=== PATIENT | female | born 1990 | race Caucasian/White ===

== ENCOUNTER 2019-11-17 02:01 | Inpatient (IN) ==
[2019-11-17] MEDS ORDERED: 0.9 % Sodium Chloride 1,000 ML IVC ONE (02:32)
[2019-11-17] MEDS ORDERED: Ondansetron 4 MG/2 ML VIAL IVP ONE (02:32)
[2019-11-17] MEDS ORDERED: Ketorolac 15 MG/ML VIAL IVP ONE (02:41)
[2019-11-17 03:08] LABS: Basophils # 0.1 K/mcL (0.0-0.2); Basophils % 0.4 %; Bilirubin,Urine Small (Negative); Blood,Urine Negative (Negative); Clarity,Urine Cloudy (Clear); Color,Urine Yellow (Yellow); Eosinophils % 0.2 %; Glucose,Urine (UA) Normal (Normal); Hemoglobin 15.6 g/dL (11.5-15.4); Immature Granulocytes % 0.4 % (0-4); Ketones,Urine 40 mg/dL (Negative); Leukocyte Esterase,Urine Negative (Negative); Lymphocytes # 0.9 K/mcL (0.6-4.6); Lymphocytes % 6.2 %; Mean Corpuscular HGB Conc 34.7 g/dL (31.6-35.5); Mean Corpuscular Hemoglobin 29.9 pg (28.0-33.3); Mean Corpuscular Volume 86.2 fL (83.0-100.0); Mean Platelet Volume 10.4 fL (9.4-12.4); Monocytes # 0.9 K/mcL (0.0-1.3); Monocytes % 6.7 %; Neutrophils # 11.7 K/mcL (1.6-8.9); Nitrite,Urine Negative (Negative); PH,Urine 5.5 pH Units (5.0-8.0); Platelet Count 265 K/mcL (140-400); Protein,Urine 100 mg/dL (Neg-Trace); Red Blood Count 5.22 M/mcL (3.82-4.97); Red Cell Distribution Width 13.5 % (11.5-14.5); Segmented Neutrophils % 86.1 %; Urobilinogen,Urine Normal (Normal); White Blood Count 13.6 K/mcL (4.3-11.1)
[2019-11-17 03:09] LABS: Bacteria,Urine Few per hpf (None-Few); Hyaline Casts,Urine Few per lpf (None-Few); Squamous Epithelial Cell,Urine Many per lpf (None-Few)
[2019-11-17] MEDS ORDERED: Isovue-370 500 ML BOTTLE IVP ONE (03:23)
[2019-11-17 03:30] LABS: Alanine Aminotransferase 43 Units/L (7-52); Albumin 4.7 g/dL (3.5-5.7); Albumin/Globulin Ratio 1.4 (1.1-2.2); Alkaline Phosphatase 66 Units/L (34-104); Amylase 17 Units/L (29-103); Aspartate Amino Transferase 22 Units/L (13-39); BUN/Creatinine Ratio 15 (6-26); Bilirubin,Direct 0.1 mg/dL (0.0-0.2); Bilirubin,Indirect 0.5 mg/dL (0.0-1.0); Bilirubin,Total 0.6 mg/dL (0.3-1.0); Blood Urea Nitrogen 13 mg/dL (6-20); Calcium 9.6 mg/dL (8.6-10.3); Carbon Dioxide 19 mEq/L (23-29); Chloride 108 mEq/L (98-107); Globulin 3.3 g/dL (2.4-3.5); Glucose 103 mg/dL (70-105); Lipase 7 Units/L (11-82); Osmolality,Calculated 292 (280-300); Potassium 3.5 mEq/L (3.5-5.1); Sodium 141 mEq/L (136-145); Troponin I < 0.03 ng/mL (< 0.04); eGFR For African Americans > 60 (> 60); eGFR For Non-African Americans > 60 (> 60)
[2019-11-17] MEDS ORDERED: cefTRIAXone 1,000 MG in Water for inj. (sterile) 10 ML IVP ONE (04:45)
[2019-11-17] MEDS ORDERED: Azithromycin 500 MG in 0.9 % Sodium Chloride 250 ML IVPB ONE (04:46)
[2019-11-17] MEDS ORDERED: Promethazine 25 MG in 0.9 % Sodium Chloride 50 ML IVPB ONE (05:52)
[2019-11-17] MEDS ORDERED: Ondansetron 4 MG/2 ML VIAL IVP PRN (07:26)
[2019-11-17] MEDS ORDERED: *HR* HYDROcodone/Acet 5/325 mg TABLET PO PRN (07:26)
[2019-11-17] MEDS ORDERED: Naloxone 0.4 MG/ML INJ IVP PRN (07:26)
[2019-11-17] MEDS ORDERED: 0.9 % Sodium Chloride 1,000 ML IVC SCH (07:45)
[2019-11-17] MEDS ORDERED: NON-FORMULARY MEDICATION 1 EACH EACH (Omeprazole [Prilosec] 40 MG) PO SCH (09:00)
[2019-11-17] MEDS ORDERED: PARoxetine 20 MG TABLET PO SCH (09:00)
[2019-11-17] MEDS: Pantoprazole 40 MG VIAL IVP SCH (09:19)
[2019-11-17] MEDS: Ondansetron 4 MG/2 ML VIAL IVP PRN ×2 (17:29→23:20)
[2019-11-18] MEDS ORDERED: CefTRIAXone 1,000 MG VIAL ONE (07:46)
[2019-11-18] MEDS: Pantoprazole 40 MG VIAL IVP SCH (07:52)
[2019-11-18 08:35] LABS: Basophils # 0.1 K/mcL (0.0-0.2); Basophils % 0.9 %; Eosinophils # 0.6 K/mcL (0.0-0.6); Eosinophils % 7.6 %; Hematocrit 46.9 % (35.3-44.9); Hemoglobin 15.4 g/dL (11.5-15.4); Immature Granulocytes % 0.3 % (0-4); Lymphocytes # 1.7 K/mcL (0.6-4.6); Lymphocytes % 22.4 %; Mean Corpuscular HGB Conc 32.8 g/dL (31.6-35.5); Mean Corpuscular Hemoglobin 29.3 pg (28.0-33.3); Mean Corpuscular Volume 89.3 fL (83.0-100.0); Mean Platelet Volume 10.6 fL (9.4-12.4); Monocytes # 0.7 K/mcL (0.0-1.3); Monocytes % 8.6 %; Neutrophils # 4.6 K/mcL (1.6-8.9); Platelet Count 203 K/mcL (140-400); Red Blood Count 5.25 M/mcL (3.82-4.97); Red Cell Distribution Width 13.4 % (11.5-14.5); Segmented Neutrophils % 60.2 %; White Blood Count 7.7 K/mcL (4.3-11.1)
[2019-11-18] MEDS: Ondansetron 4 MG/2 ML VIAL IVP PRN ×3 (08:37→19:53)
[2019-11-18 08:53] LABS: BUN/Creatinine Ratio 15 (6-26); Blood Urea Nitrogen 10 mg/dL (6-20); Carbon Dioxide 20 mEq/L (23-29); Chloride 109 mEq/L (98-107); Glucose 72 mg/dL (70-105); Magnesium 2.1 mg/dL (1.6-2.6); Osmolality,Calculated 286 (280-300); Phosphorous 3.2 mg/dL (2.7-4.5); Potassium 3.3 mEq/L (3.5-5.1); Sodium 139 mEq/L (136-145); eGFR For African Americans > 60 (> 60); eGFR For Non-African Americans > 60 (> 60)
[2019-11-18] MEDS ORDERED: cefTRIAXone 1,000 MG in Water for inj. (sterile) 10 ML IVP SCH (09:00)
[2019-11-18] MEDS ORDERED: Azithromycin 500 MG in 0.9 % Sodium Chloride 250 ML IVPB SCH (09:00)
[2019-11-18] MEDS ORDERED: *HR* Promethazine 25 MG/ML VIAL IM ONE (10:05)
[2019-11-18] MEDS ORDERED: Isovue-370 500 ML BOTTLE IVP ONE (11:23)
[2019-11-18] MEDS: 0.9 % Sodium Chloride 1,000 ML IVC SCH ×2 (12:19→23:34)
[2019-11-18] MEDS ORDERED: *HR* Promethazine 25 MG/ML VIAL IVP PRN (12:41)
[2019-11-18] MEDS: Promethazine 25 MG in 0.9 % Sodium Chloride 50 ML IVPB PRN (14:50)
[2019-11-19] MEDS: Promethazine 25 MG in 0.9 % Sodium Chloride 50 ML IVPB PRN ×2 (00:17→09:51)
[2019-11-19 07:51] LABS: Hematocrit 41.1 % (35.3-44.9); Hemoglobin 13.9 g/dL (11.5-15.4); Mean Corpuscular HGB Conc 33.8 g/dL (31.6-35.5); Mean Corpuscular Hemoglobin 29.5 pg (28.0-33.3); Mean Corpuscular Volume 87.3 fL (83.0-100.0); Mean Platelet Volume 10.7 fL (9.4-12.4); Platelet Count 212 K/mcL (140-400); Red Blood Count 4.71 M/mcL (3.82-4.97); Red Cell Distribution Width 13.3 % (11.5-14.5); White Blood Count 8.9 K/mcL (4.3-11.1)
[2019-11-19 07:58] LABS: BUN/Creatinine Ratio 14 (6-26); Blood Urea Nitrogen 8 mg/dL (6-20); Calcium 8.2 mg/dL (8.6-10.3); Carbon Dioxide 15 mEq/L (23-29); Chloride 119 mEq/L (98-107); Glucose 67 mg/dL (70-105); Osmolality,Calculated 277 (280-300); Potassium 3.7 mEq/L (3.5-5.1); Sodium 135 mEq/L (136-145); eGFR For African Americans > 60 (> 60); eGFR For Non-African Americans > 60 (> 60)
[2019-11-19] MEDS: Pantoprazole 40 MG VIAL IVP SCH (08:22)
[2019-11-19] MEDS: Ondansetron 4 MG/2 ML VIAL IVP PRN ×2 (08:22→16:20)
[2019-11-19 11:45] LABS: Adenovirus F 40/41 PCR Not detected (Not detect); Astrovirus PCR Not detected (Not detect); C.difficile Toxin A/B Gene PCR Not detected (Not detect); Campylobacter by PCR Not detected (Not detect); Cryptosporidium by PCR Not detected (Not detect); Cyclospora cayetanensis PCR Not detected (Not detect); E. coli O157 by PCR Not detected (Not detect); Entamoeba histolytica PCR Not detected (Not detect); Enteroaggregative E.coli(EAEC) Not detected (Not detect); Enteropathogenic E.coli(EPEC) Not detected (Not detect); Enterotoxigenic E.coli (ETEC) Not detected (Not detect); Giardia lamblia PCR Not detected (Not detect); Norovirus GI/GII PCR Not detected (Not detect); Plesiomonas shigelloides PCR Not detected (Not detect); Rotavirus A PCR Not detected (Not detect); Salmonella PCR Not detected (Not detect); Sapovirus PCR Not detected (Not detect); Shig/EnteroinvasiveE coli EIEC Not detected (Not detect); Shigalike tox-prod E coli STEC Not detected (Not detect); Vibrio PCR Not detected (Not detect); Vibrio cholerae PCR Not detected (Not detect); Yersinia enterocolitica PCR Not detected (Not detect)
[2019-11-19] MEDS: *HR* Promethazine 25 MG/ML VIAL IVP PRN ×2 (14:24→20:17)
[2019-11-19] MEDS ORDERED: GI Cocktail 40 ML EACH PO ONE (17:53)
[2019-11-19] MEDS ORDERED: cefTRIAXone 1,000 MG in Water for inj. (sterile) 10 ML IVP ONE (17:54)
[2019-11-19] MEDS: 0.9 % Sodium Chloride 1,000 ML IVC SCH ×2 (17:54→20:26)
[2019-11-20] MEDS: 0.9 % Sodium Chloride 1,000 ML IVC SCH (05:53)
[2019-11-20 06:30] LABS: BUN/Creatinine Ratio 11 (6-26); Blood Urea Nitrogen 6 mg/dL (6-20); Calcium 8.4 mg/dL (8.6-10.3); Carbon Dioxide 10 mEq/L (23-29); Chloride 111 mEq/L (98-107); Glucose 67 mg/dL (70-105); Osmolality,Calculated 282 (280-300); Potassium 3.6 mEq/L (3.5-5.1); Sodium 138 mEq/L (136-145); eGFR For African Americans > 60 (> 60); eGFR For Non-African Americans > 60 (> 60)
[2019-11-20] MEDS ORDERED: Isovue-370 500 ML BOTTLE IVP ONE (09:29)
[2019-11-20 09:30] LABS: Creatine Kinase 42 Units/L (30-223); Magnesium 1.9 mg/dL (1.6-2.6); Phosphorous 2.7 mg/dL (2.7-4.5); Salicylate < 2.5 mg/dL (15.0-30.0)
[2019-11-20 10:41] LABS: ABG Base Excess -10 mEq/L (-2 to 3); ABG HCO3 13 mEq/L (21-27); ABG Oxygen Saturation 98 % (95-98); ABG PCO2 23 mmHg (35-45); ABG PH 7.37 pH Units (7.32-7.45); ABG PO2 110 mmHg (85-104); ABG TCO2 14 mEq/L (20-26)
[2019-11-20] MEDS: Sodium Bicarbonate 150 MEQ in D5% in Water 1,000 ML IVC SCH ×2 (10:51→20:26)
[2019-11-20] MEDS: *HR* Promethazine 25 MG/ML VIAL IVP PRN (10:51)
[2019-11-20] MEDS: MetroNIDAZOLE 500 MG/100 ML 500 MG/100 ML BAG IVPB SCH ×2 (13:01→17:43)
[2019-11-20 16:40] LABS: BUN/Creatinine Ratio 10 (6-26); Blood Urea Nitrogen 5 mg/dL (6-20); Calcium 8.3 mg/dL (8.6-10.3); Carbon Dioxide 16 mEq/L (23-29); Chloride 109 mEq/L (98-107); Glucose 84 mg/dL (70-105); Osmolality,Calculated 276 (280-300); Potassium 3.2 mEq/L (3.5-5.1); Sodium 135 mEq/L (136-145); eGFR For African Americans > 60 (> 60); eGFR For Non-African Americans > 60 (> 60)
[2019-11-20 22:45] LABS: Potassium,Urine 12.4 mEq/L; Sodium, Urine 129.6 mEq/L
[2019-11-21] MEDS: MetroNIDAZOLE 500 MG/100 ML 500 MG/100 ML BAG IVPB SCH ×4 (00:35→17:05)
[2019-11-21] MEDS ORDERED: *HR* Promethazine 25 MG/ML VIAL IM ONE (02:14)
[2019-11-21] MEDS: Scopolamine Patch 1.5 MG PATCH.TD72 TD SCH (02:29)
[2019-11-21] MEDS ORDERED: Ondansetron ODT 4 MG TAB.RAPDIS SL ONE (02:46)
[2019-11-21] MEDS: *HR* Promethazine 25 MG/ML VIAL IVP PRN ×4 (03:54→21:42)
[2019-11-21] MEDS ORDERED: 0.9 % Sodium Chloride 1,000 ML IVC SCH (04:15)
[2019-11-21 05:29] LABS: BUN/Creatinine Ratio 11 (6-26); Blood Urea Nitrogen 4 mg/dL (6-20); Calcium 6.5 mg/dL (8.6-10.3); Carbon Dioxide 11 mEq/L (23-29); Chloride 113 mEq/L (98-107); Glucose 85 mg/dL (70-105); Osmolality,Calculated 284 (280-300); Potassium 2.3 mEq/L (3.5-5.1); Sodium 139 mEq/L (136-145); eGFR For African Americans > 60 (> 60); eGFR For Non-African Americans > 60 (> 60)
[2019-11-21] MEDS ORDERED: Potassium Chloride 20 MEQ, Lidocaine 1% 2 ML in 0.9 % Sodium Chloride 250 ML IVPB ONE (05:36)
[2019-11-21] MEDS ORDERED: Prochlorperazine 10 MG/2 ML VIAL IVP PRN (05:38)
[2019-11-21] MEDS: Sodium Bicarbonate 150 MEQ in D5% in Water 1,000 ML IVC SCH ×2 (06:20→20:17)
[2019-11-21] MEDS ORDERED: Potassium Chloride 40 MEQ, Lidocaine 1% 2 ML in 0.9 % Sodium Chloride 500 ML IVPB ONE ×2 (07:36→12:00)
[2019-11-21 08:34] LABS: Magnesium 1.2 mg/dL (1.6-2.6)
[2019-11-21 09:14] LABS: Phosphorous < 1.0 mg/dL (2.7-4.5)
[2019-11-21] MEDS ORDERED: Potassium Phosphate 44 MEQ in 0.9 % Sodium Chloride 250 ML IVPB ONE (09:23)
[2019-11-21] MEDS: Calcium Gluconate 1gm/50mL 1 GM/50 ML BAG IVPB SCH (10:36)
[2019-11-21 11:03] LABS: VBG Ionized Calcium 1.07 mmol/L (1.15-1.35)
[2019-11-21 11:15] LABS: Basophils # 0.1 K/mcL (0.0-0.2); Basophils % 0.7 %; Eosinophils % 0.5 %; Hemoglobin 14.3 g/dL (11.5-15.4); Immature Granulocytes % 0.2 % (0-4); Lymphocytes # 0.9 K/mcL (0.6-4.6); Lymphocytes % 10.2 %; Mean Corpuscular HGB Conc 35.8 g/dL (31.6-35.5); Mean Corpuscular Hemoglobin 29.7 pg (28.0-33.3); Mean Corpuscular Volume 83.2 fL (83.0-100.0); Mean Platelet Volume 10.4 fL (9.4-12.4); Monocytes # 0.7 K/mcL (0.0-1.3); Monocytes % 7.7 %; Neutrophils # 7.1 K/mcL (1.6-8.9); Platelet Count 269 K/mcL (140-400); Red Blood Count 4.81 M/mcL (3.82-4.97); Red Cell Distribution Width 12.8 % (11.5-14.5); Segmented Neutrophils % 80.7 %; White Blood Count 8.7 K/mcL (4.3-11.1)
[2019-11-21] MEDS: Calcium Gluconate 1gm/50mL 1 GM/50 ML BAG IVPB PRN ×2 (12:01→20:23)
[2019-11-21] MEDS: Ondansetron 4 MG/2 ML VIAL IVP PRN ×2 (12:48→19:44)
[2019-11-21 18:01] LABS: VBG Ionized Calcium 0.78 mmol/L (1.15-1.35)
[2019-11-21 18:21] LABS: BUN/Creatinine Ratio 5 (6-26); Blood Urea Nitrogen 2 mg/dL (6-20); Calcium 8.1 mg/dL (8.6-10.3); Carbon Dioxide 20 mEq/L (23-29); Chloride 103 mEq/L (98-107); Glucose 121 mg/dL (70-105); Osmolality,Calculated 277 (280-300); Potassium 2.9 mEq/L (3.5-5.1); Sodium 135 mEq/L (136-145); eGFR For African Americans > 60 (> 60); eGFR For Non-African Americans > 60 (> 60)
[2019-11-21 18:48] LABS: Magnesium 1.9 mg/dL (1.6-2.6); Phosphorous 2.5 mg/dL (2.7-4.5)
[2019-11-22] MEDS: MetroNIDAZOLE 500 MG/100 ML 500 MG/100 ML BAG IVPB SCH ×4 (00:43→19:41)
[2019-11-22 05:17] LABS: VBG Ionized Calcium 1.05 mmol/L (1.15-1.35)
[2019-11-22 05:17] LABS: Hematocrit 40.5 % (35.3-44.9); Hemoglobin 14.3 g/dL (11.5-15.4); Mean Corpuscular HGB Conc 35.3 g/dL (31.6-35.5); Mean Corpuscular Hemoglobin 29.3 pg (28.0-33.3); Mean Platelet Volume 10.1 fL (9.4-12.4); Platelet Count 256 K/mcL (140-400); Red Blood Count 4.88 M/mcL (3.82-4.97); Red Cell Distribution Width 12.8 % (11.5-14.5); White Blood Count 8.2 K/mcL (4.3-11.1)
[2019-11-22 05:33] LABS: BUN/Creatinine Ratio 4 (6-26); Blood Urea Nitrogen 2 mg/dL (6-20); Carbon Dioxide 30 mEq/L (23-29); Chloride 102 mEq/L (98-107); Glucose 114 mg/dL (70-105); Magnesium 2.2 mg/dL (1.6-2.6); Osmolality,Calculated 285 (280-300); Potassium 2.8 mEq/L (3.5-5.1); Sodium 139 mEq/L (136-145); eGFR For African Americans > 60 (> 60); eGFR For Non-African Americans > 60 (> 60)
[2019-11-22] MEDS: Calcium Gluconate 1gm/50mL 1 GM/50 ML BAG IVPB PRN ×3 (06:14→20:51)
[2019-11-22] MEDS: Sodium Bicarbonate 150 MEQ in D5% in Water 1,000 ML IVC SCH ×2 (06:34→19:40)
[2019-11-22] MEDS: *HR* Promethazine 25 MG/ML VIAL IVP PRN ×2 (07:33→17:29)
[2019-11-22] MEDS: Ondansetron 4 MG/2 ML VIAL IVP PRN (09:00)
[2019-11-22 10:44] LABS: BUN/Creatinine Ratio 4 (6-26); Blood Urea Nitrogen 2 mg/dL (6-20); Calcium 8.7 mg/dL (8.6-10.3); Carbon Dioxide 23 mEq/L (23-29); Chloride 101 mEq/L (98-107); Glucose 138 mg/dL (70-105); Osmolality,Calculated 278 (280-300); Potassium 3.6 mEq/L (3.5-5.1); Sodium 135 mEq/L (136-145); eGFR For African Americans > 60 (> 60); eGFR For Non-African Americans > 60 (> 60)
[2019-11-22] MEDS ORDERED: Metoclopramide 10 MG/2 ML VIAL IVP ONE (11:38)
[2019-11-22 11:51] LABS: VBG Ionized Calcium 1.01 mmol/L (1.15-1.35)
[2019-11-22] MEDS ORDERED: Metoclopramide 10 MG/2 ML VIAL IVP PRN (17:00)
[2019-11-22 18:08] LABS: VBG Ionized Calcium 0.95 mmol/L (1.15-1.35); VBG PH 7.58 pH Units (7.32-7.42)
[2019-11-23] MEDS: *HR* Promethazine 25 MG/ML VIAL IVP PRN (01:10)
[2019-11-23] MEDS: MetroNIDAZOLE 500 MG/100 ML 500 MG/100 ML BAG IVPB SCH ×4 (01:10→18:10)
[2019-11-23 02:44] LABS: VBG Ionized Calcium 1.05 mmol/L (1.15-1.35)
[2019-11-23 03:00] LABS: BUN/Creatinine Ratio 4 (6-26); Blood Urea Nitrogen 2 mg/dL (6-20); Calcium 8.9 mg/dL (8.6-10.3); Carbon Dioxide 26 mEq/L (23-29); Chloride 101 mEq/L (98-107); Glucose 127 mg/dL (70-105); Osmolality,Calculated 282 (280-300); Potassium 2.9 mEq/L (3.5-5.1); Sodium 137 mEq/L (136-145); eGFR For African Americans > 60 (> 60); eGFR For Non-African Americans > 60 (> 60)
[2019-11-23] MEDS: Ondansetron 4 MG/2 ML VIAL IVP PRN ×3 (04:12→16:52)
[2019-11-23] MEDS: Calcium Gluconate 1gm/50mL 1 GM/50 ML BAG IVPB PRN ×2 (04:29→14:59)
[2019-11-23] MEDS: Sodium Bicarbonate 150 MEQ in D5% in Water 1,000 ML IVC SCH ×2 (08:29→18:02)
[2019-11-23 10:09] LABS: BUN/Creatinine Ratio 3 (6-26); Blood Urea Nitrogen 2 mg/dL (6-20); Calcium 8.5 mg/dL (8.6-10.3); Carbon Dioxide 29 mEq/L (23-29); Chloride 101 mEq/L (98-107); Glucose 127 mg/dL (70-105); Osmolality,Calculated 284 (280-300); Potassium 3.4 mEq/L (3.5-5.1); Sodium 138 mEq/L (136-145); eGFR For African Americans > 60 (> 60); eGFR For Non-African Americans > 60 (> 60)
[2019-11-23] MEDS: Metoclopramide 10 MG/2 ML VIAL IVP PRN ×2 (13:37→20:56)
[2019-11-23 14:39] LABS: VBG Ionized Calcium 1.09 mmol/L (1.15-1.35)
[2019-11-23 14:42] LABS: Magnesium 2.2 mg/dL (1.6-2.6); Phosphorous 3.5 mg/dL (2.7-4.5); Potassium 3.4 mEq/L (3.5-5.1)
[2019-11-23 21:11] LABS: VBG Ionized Calcium 1.11 mmol/L (1.15-1.35)
[2019-11-24] MEDS: MetroNIDAZOLE 500 MG/100 ML 500 MG/100 ML BAG IVPB SCH ×2 (00:32→06:07)
[2019-11-24] MEDS: Scopolamine Patch 1.5 MG PATCH.TD72 TD SCH (00:32)
[2019-11-24] MEDS: Ondansetron 4 MG/2 ML VIAL IVP PRN (04:16)
[2019-11-24] MEDS: Sodium Bicarbonate 150 MEQ in D5% in Water 1,000 ML IVC SCH (04:16)
[2019-11-24 04:41] LABS: BUN/Creatinine Ratio 5 (6-26); Blood Urea Nitrogen 3 mg/dL (6-20); Calcium 8.3 mg/dL (8.6-10.3); Carbon Dioxide 31 mEq/L (23-29); Chloride 104 mEq/L (98-107); Glucose 108 mg/dL (70-105); Magnesium 2.1 mg/dL (1.6-2.6); Osmolality,Calculated 285 (280-300); Potassium 3.4 mEq/L (3.5-5.1); Sodium 139 mEq/L (136-145); eGFR For African Americans > 60 (> 60); eGFR For Non-African Americans > 60 (> 60)
[2019-11-24 11:47] VITALS: BP 160/81
== END 2019-11-24 13:58 | disposition home or self-care (01) | DRG 249 ==
LOC: 2NENU 02:01 → EMEROOARM 02:01 → 2NENU 07:57 → 3NENU 20:23 → 3BNU 11-19 11:38 → 3NENU 11-21 10:45
PROVIDERS: ADMIT Family Medicine; ATTEND Family Medicine

== ENCOUNTER 2021-04-11 13:11 | Inpatient (IN) ==
[2021-04-11 14:13] LABS: Bilirubin,Urine Negative (Negative); Blood,Urine Negative (Negative); Clarity,Urine Clear (Clear); Color,Urine Light-Yellow (Yellow); Glucose,Urine (UA) Normal (Normal); Ketones,Urine Negative (Negative); Leukocyte Esterase,Urine Negative (Negative); Nitrite,Urine Negative (Negative); Protein,Urine Negative (Neg-Trace); Specific Gravity,Urine 1.013 (1.010-1.025); Urobilinogen,Urine Normal (Normal)
[2021-04-11 15:16] LABS: Amphetamine Screen,Urine Negative ng/mL (Cutoff=1000); Barbiturate Screen,Urine Negative ng/mL (Cutoff=200); Benzodiazepines Screen,Urine Negative ng/mL (Cutoff=200); Cannabinoid Screen,Urine Negative ng/mL (Cutoff = 50); Cocaine Screen,Urine Negative ng/mL (Cutoff= 300); Opiate Screen,Urine Negative ng/mL (Cutoff=300); Phencyclidine Screen,Urine Negative ng/mL (Cutoff=25)
[2021-04-11 15:25] LABS: Basophils # 0.1 K/mcL (0.0-0.2); Eosinophils # 0.2 K/mcL (0.0-0.6); Eosinophils % 4.4 %; Hematocrit 40.5 % (35.3-44.9); Hemoglobin 13.4 g/dL (11.5-15.4); Immature Granulocytes % 0.2 % (0-4); Lymphocytes # 1.4 K/mcL (0.6-4.6); Lymphocytes % 26.2 %; Mean Corpuscular HGB Conc 33.1 g/dL (31.6-35.5); Mean Corpuscular Hemoglobin 29.3 pg (28.0-33.3); Mean Corpuscular Volume 88.6 fL (83.0-100.0); Mean Platelet Volume 9.9 fL (9.4-12.4); Monocytes # 0.5 K/mcL (0.0-1.3); Monocytes % 8.7 %; Neutrophils # 3.1 K/mcL (1.6-8.9); Platelet Count 291 K/mcL (140-400); Red Blood Count 4.57 M/mcL (3.82-4.97); Red Cell Distribution Width 13.2 % (11.5-14.5); Segmented Neutrophils % 59.5 %; White Blood Count 5.2 K/mcL (4.3-11.1)
[2021-04-11 15:43] LABS: Acetaminophen < 10 mcg/mL (10-20); BUN/Creatinine Ratio 10 (6-26); Blood Urea Nitrogen 7 mg/dL (6-20); Calcium 9.4 mg/dL (8.6-10.3); Carbon Dioxide 27 mEq/L (23-29); Chloride 103 mEq/L (98-107); Ethanol < 10 mg/dL (Less than 10); Glucose 83 mg/dL (70-105); Osmolality,Calculated 283 (280-300); Potassium 3.8 mEq/L (3.5-5.1); Salicylate < 2.5 mg/dL (15.0-30.0); Sodium 138 mEq/L (136-145); eGFR For African Americans > 60 (> 60); eGFR For Non-African Americans > 60 (> 60)
[2021-04-11 21:34] LABS: Influenza A PCR Negative (Negative); Influenza B PCR Negative (Negative); Resp. Syncytial Virus PCR Negative (Negative)
[2021-04-11 21:41] LABS: SARS-CoV-2 by PCR (In House) Negative (Negative)
[2021-04-11] MEDS ORDERED: Ibuprofen 400 MG TABLET PO PRN (21:55)
[2021-04-11] MEDS ORDERED: haloperidoL 5 MG TABLET PO PRN (21:55)
[2021-04-11] MEDS ORDERED: Haloperidol Lactate 5 MG/ML VIAL IM PRN (21:55)
[2021-04-11] MEDS ORDERED: Acetaminophen 325 MG TABLET PO PRN (21:55)
[2021-04-11] MEDS ORDERED: *HR* LORazepam 2 MG/ML VIAL IM PRN (21:55)
[2021-04-11] MEDS ORDERED: *HR* LORazepam 1 MG TABLET PO PRN (21:55)
[2021-04-11] MEDS ORDERED: *HR* LORazepam 0.5 MG TABLET PO PRN (21:59)
[2021-04-11] MEDS: hydrOXYzine pamoate 25 MG CAPSULE PO PRN (22:56)
[2021-04-11] MEDS: traZODone 50 MG TABLET PO PRN (23:07)
[2021-04-12] MEDS ORDERED: MOM Conc 10 ML UD.LIQ PO PRN (08:48)
[2021-04-12] MEDS ORDERED: Mag Hydrox/Al Hydrox/Simeth 30 ML UDC PO PRN (08:48)
[2021-04-12] MEDS ORDERED: FLUoxetine 20 MG CAPSULE PO SCH (09:00)
[2021-04-12] MEDS ORDERED: FLUoxetine HCl Oral Soln 20 MG/5 ML UDC PO ONE (12:00)
[2021-04-12] MEDS: hydrOXYzine pamoate 25 MG CAPSULE PO PRN (20:28)
[2021-04-12] MEDS: traZODone 50 MG TABLET PO PRN (20:29)
[2021-04-13] MEDS: FLUoxetine 20 MG CAPSULE PO SCH (08:54)
[2021-04-13] MEDS: ARIPiprazole 5 MG TABLET PO SCH (09:31)
[2021-04-13] MEDS ORDERED: Ondansetron Oral Soln 2 MG/2.5 ML ORAL.SYG PO PRN (16:53)
[2021-04-14] MEDS: FLUoxetine 20 MG CAPSULE PO SCH (09:06)
[2021-04-14] MEDS: ARIPiprazole 5 MG TABLET PO SCH (09:07)
[2021-04-14 10:02] VITALS: BP 104/63; PULSE 120; TEMP 99.5; O2SAT 98
[2021-04-14] MEDS ORDERED: FLU Vac QV 21-22 (6Month+)/PF 0.5 ML SYRINGE IM ONE (13:08)
== END 2021-04-14 15:50 | disposition home or self-care (01) | DRG 756 ==
LOC: EMEROOARM 13:11 → 1ANU 21:57
PROVIDERS: ADMIT Psychiatry & Neurology Psychiatry; ATTEND Psychiatry & Neurology Psychiatry